=== PATIENT | male | born 1960 | race Caucasian/White ===

== ENCOUNTER 2016-03-02 14:49 | Emergency (ER) | payer OTHER ==
[2016-03-02 15:12] VITALS: BP 155/108; PULSE 84; RESP 18; TEMP 97.9; O2SAT 95
--- NOTE | 2016-03-02 15:15 | UCPHY ---
H & P Time Seen by Provider: 03/02/16 15:14 Patient Type: New HPI/ROS: Chief complaint. Leg injury HPI. 55-year-old male with left lower leg injury that occurred last evening. The patient and his were walking on the street and was quite dark. He missed a step and fell about 3 feet landing hard on his left leg. He describes it as a FOOSH injury however with his leg. He is unable to bear weight. He has been using crutches today. Denies head injury or loss of consciousness. No neck pain chest pain. No other injuries. No significant swelling or deformity however unable to bear weight secondary to pain. No previous injury to the leg. Pain is in the lateral aspect of the calf ROS Constitutional. no fever/chills, no weakness Eyes. no problems with vision ENT. no sore throat, no nasal drainage Cardiovascular. no chest pain Respiratory. no shortness of breath, no cough Abdominal. no abdominal pain, no nausea/vomiting, no diarrhea . no problems urinating MS. Left leg injury Skin. no rash Lymph. no swollen glands Neuro. no headache, no dizziness, no difficulty walking or with speech Past Medical/Surgical History: Pulmonary embolus with lung infarction, orthopedic injury Social History: Single, nonsmoker, no alcohol Smoking Status: Never smoked Physical Exam: General Appearance: Alert well-developed male mild distress vital signs stable Eyes: Pupils equal and round no pallor or injection. ENT, Mouth: Mucous membranes are moist. Respiratory: There are no retractions, lungs are clear to auscultation. Cardiovascular: Regular rate and rhythm. Gastrointestinal: Abdomen is soft and nontender, no masses, bowel sounds normal. Neurological: Awake and alert, sensory and motor exams grossly normal. Skin: Warm and dry, no rashes. Musculoskeletal: Neck is supple nontender. Extremities symmetrical, full range of motion. There is tenderness to palpation along the fibula in the lateral calf. No obvious swelling or deformity. There is no knee pain. Some tenderness to the lateral malleolus again without swelling or deformity. No tenderness to the calcaneus or Achilles. Psychiatric: Patient is oriented X 3, there is no agitation. Constitutional: Initial Vital Signs Temperature (C) 36.6 C 03/02/16 15:10 Heart Rate 84 03/02/16 15:10 Respiratory Rate 18 03/02/16 15:10 Blood Pressure 155/108 H 03/02/16 15:10 O2 Sat (%) 95 03/02/16 15:10 O2 Delivery Mode Room Air Allergies/Adverse Reactions: No Known Allergies Allergy (Unverified 03/02/16 15:10) Home Medications: Medication Instructions Recorded oxyCODONE/APAP 5/325 [Percocet 1 tab PO Q4-6PRN PRN #18 tab 03/02/16 5/325] Medical Decision Making - Diagnostics Imaging: X-ray left tib-fib interpreted by me shows a proximal comminuted fracture of the fibula Procedures: Patient is placed in a long leg fiberglass splint. Post splint application shows good anatomic position and distal motor vascular sensitivity to be intact ED Course/Re-evaluation: Re-evaluation 4:00 p.m. patient and I discussed imaging study results, criteria for return, treatment plan and importance of follow-up and further evaluation. He expresses understanding and agreement Patient is given Percocet by mouth Differential Diagnosis: I considered fracture, dislocation, sprain - Data Points Medications Given: Discontinued Medications Oxycodone/Acetaminophen (Percocet 5/325) 1 tab PO EDNOW ONE Stop: 03/02/16 16:10 Last Admin: 03/02/16 16:15 Dose: 1 tab Departure - Departure Disposition: Home, Routine, Self-Care Clinical Impression: Fibula upper end fracture Qualifiers: Encounter type: initial encounter Fracture type: closed Fracture morphology: other fracture Laterality: left Qualifier Code: (S82.832A) Other fracture of upper and lower end of left fibula, initial encounter for closed fracture Condition: Good Instructions: Leg Fracture (ED) Additional Instructions: Ice and elevation next 24-48 hours. Percocet as needed for pain. Splint and crutches until see orthopedist. Call Dr. Pederson is office tomorrow morning to arrange follow-up later this week. Return for worsening pain, swelling Referrals: Omar Palacios MD [Primary Care Provider] - As per Instructions Colby Pederson MD [Medical Doctor] - 5-7 days, call for appt. Prescriptions: oxyCODONE/APAP 5/325 [Percocet 5/325] 1 tab PO Q4-6PRN PRN #18 tab PRN Reason: Pain, Moderate - PQRS PQRS Measurement: 134: Depression screening and followup, PRIME MD-PHQ2 (12 years and older) Over the last 2 weeks, how often have you been bothered by any of the following problems? 1. Feeling down, depressed, or hopeless? 2. Little interest or pleasure in doing things? Patient answered no to both 1 and 2 130: Documentation of medications. Reviewed all patient medications, doses, route and frequency. 226: Do you smoke? No.
--- NOTE | 2016-03-02 15:54 | DX ---
Left Tibia-Fibula, 4 Views, at 3:26 p.m. Clinical History: 55-year-old male who fell last night, and complains of left tibiofibular pain. Comparison Study: None. Findings: There is an acute partially comminuted and impacted fracture involving the proximal diaphys eal aspect of the fibula. The tibia is intact. There is some mild degenerative spurring along the und ersurface of the medial and lateral malleoli and over the distal anterior tibia. There is no ankle jessica int effusion. There is an unfused os peroneum seen adjacent to the cuboid bone. Impression: Acute mildly impacted and partially comminuted fracture involving the proximal fibular d iaphysis.
[2016-03-02] MEDS ORDERED: OXYCODONE/APAP 5/325 TAB PO ONE (16:09)
== END 2016-03-02 16:37 | disposition home or self-care (01) ==
LOC: CED 14:49
DX: S82.832A Other fracture of upper and lower end of left fibula, initial encounter for closed fracture (principal); W19.XXXA Unspecified fall, initial encounter
CPT/HCPCS: 29505-PO; 73590-PO; 99203-PO; G0463-PO

== ENCOUNTER 2017-01-21 07:37 | Day surgery (SDC) | payer OTHER ==
[~2017-01-21 07:37] MED LIST: ALTEPLASE 2 MG VIAL IVP PRN; FLUMAZENIL 0.5 MG/5 ML MDV IVP PRN; GLUCAGON HCL 1 MG VIAL IVP PRN; HEPARIN 10,000 UNIT/10 ML MDV IVP PRN; MEPERIDINE 25 MG/ML SYR IVP PRN; MIDAZOLAM 2 MG/2 ML VIAL IVP PRN; NALOXONE HCL 0.4 MG/ML INJ IVP PRN; PROTAMINE SULFATE 50 MG/5 ML VIAL IVP PRN; fentaNYL 100 MCG/2 ML INJ IVP PRN
[2017-01-21] MEDS ORDERED: NS 1,000 ML IV SCH (07:45)
[2017-01-21 08:34] VITALS: PULSE 75; RESP 16; TEMP 209.8
[2017-01-21 08:37] LABS: ADD DIFF? NO; ADD MORPH? NO; ADD SCAN? NO; ATYPICAL LYMPHOCYTE FLAG 0 (0-99); FRAGMENT RBC FLAG 0 (0-99); HEMATOCRIT 41.8 % (40.0-51.0); LEFT SHIFT FLG 0 (0-99); LIPEMIA HEMOLYSIS FLAG 90 (0-99); MEAN CELL HEMOGLOBIN CONCENTR. 35.9 g/dL (32.4-36.7); MEAN CELL VOLUME 100.2 fL (81.5-99.8); PLATELET CLUMPS FLAG 0 (0-99); PLATELET COUNT 175 10^3/uL (150-400); RED BLOOD CELL COUNT 4.17 10^6/uL (4.40-6.38); RED CELL DISTRIBUTION WIDTH 12.3 % (11.5-15.2)
[2017-01-21] MEDS ORDERED: NALOXONE HCL 0.4 MG/ML INJ ONE (08:41)
[2017-01-21] MEDS ORDERED: FLUMAZENIL 0.5 MG/5 ML MDV IVP ONE (08:41)
[2017-01-21] MEDS ORDERED: fentaNYL 100 MCG/2 ML INJ ONE (08:41)
[2017-01-21] MEDS ORDERED: MIDAZOLAM 2 MG/2 ML VIAL ONE (08:42)
[2017-01-21 08:45] LABS: INR 1.02 (0.83-1.16); PROTIME(PATIENT) 13.3 SEC (12.0-15.0)
--- NOTE | 2017-01-21 08:54 | PDPROPOC ---
Sedation Plan of Care Sedation Plan of Care: vital signs stable, mental status noted, patient educated of risks, benefits, alternatives, patient can tolerate sedation ASA Classification: ASA 2 Planned drugs: fentanyl, midazolam Mallampati Score: Class 1 Mallampati Reference Image: Patient passed 3-3-2 rule?: Yes
--- NOTE | 2017-01-21 08:57 | PDGENHP ---
History & Physical Chief Complaint: Swelling of left leg History of Present Illness: Chronic DVT left leg. History of pulmonary embolism in 2013. Relevant Physical Exam: see consult of 12/18/16. Pretibial edema improved with compression stockings, now only a trace on left. Cardiorespiratory Assessment: Lungs clear to auscultation. Heart: RRR, pulse 72 , no murmur.
[2017-01-21 09:01] LABS: CREATININE 0.8 mg/dL (0.7-1.3); GLOMERULAR FILTRATION RATE > 60
[2017-01-21] MEDS ORDERED: IOPAMIDOL (ISOVUE-300) 100 ML BTL ONE (09:47)
[2017-01-21 09:53] VITALS: BP 118/76; O2SAT 98
[2017-01-21] MEDS ORDERED: ONDANSETRON 4 MG/2 ML VIAL IVP PRN (09:56)
[2017-01-21] MEDS ORDERED: OXYCODONE/APAP 5/325 TAB PO PRN (09:56)
--- NOTE | 2017-01-21 09:56 | PDRADPN ---
Radiology Procedure Note Date of Procedure: 01/21/17 Radiologist: Abhay Norman Anesthesia: IV Sedation Pre-op Diagnosis: DVT, history of PE Post-op Diagnosis: same Indication: Chronic DVT left leg Procedure: Left iliac venography and IVC-gram Finding(s): Normal. Inf/Abcess present in the surg proc area at time of surgery?: No EBL: Minimal Complications: 0
== END 2017-01-21 13:00 | disposition home or self-care (01) ==
LOC: FIMAGING 07:37
PROVIDERS: ATTEND Radiology Diagnostic Radiology
PROC: B54CZZA Ultrasonography of Left Lower Extremity Veins, Guidance (ICD-10-PCS; principal; 2017-01-21)
DX: I82.522 Chronic embolism and thrombosis of left iliac vein (principal); Z86.711 Personal history of pulmonary embolism
CPT/HCPCS: 75820; 99152; C1769; J1644; J2250; J2310; J3010; Q9967